=== PATIENT | male | born 1955 | race Two or more races ===

== ENCOUNTER 2017-08-03 09:07 | Inpatient (IN) | payer MEDICAID ==
[2017-08-03] VITALS (35 sets, daily range): BP systolic 84–174; BP diastolic 24–68
[~2017-08-03] VITALS: Ht 175.3 cm; Wt 97.7 kg
[2017-08-03] MEDS ORDERED: SODIUM CHLORIDE 0.9% 1000ML BAG (SEPSIS BOLUS) IV ONE (10:15)
[2017-08-03 10:47] LABS: HEMATOCRIT. 36.3 % (42.0-52.0); HEMOGLOBIN. 11.6 g/dL (14.0-18.0); INR 1.7; MEAN CORPUSCULAR HEMOGLOBIN 26.4 pg (28.0-32.0); MEAN CORPUSCULAR VOLUME 82.5 fL (80.0-94.0); MEAN PLATELET VOLUME 10.5 fl (7.4-10.4); PLATELET 708 x1000/uL (130-400); PROTHROMBIN TIME 17.5 sec (9.4-11.6); RED BLOOD CELL COUNT 4.41 mill/uL (4.7-6.1); RED CELL DISTRIBUTION WIDTH 18.2 % (11.6-14.6)
[2017-08-03 10:55] LABS: CARBON DIOXIDE 28 mEq/L (21-32); CHLORIDE 99 mEq/L (98-107)
[2017-08-03] MEDS ORDERED: PHENYTOIN SODIUM 500 MG in SODIUM CHLORIDE 0.9% 50 ML IV ONE (11:15)
[2017-08-03 11:25] LABS: NUCLEATED RED BLOOD CELLS 2 /100 WBC; PLATELET ESTIMATE INCREASED
[2017-08-03] MEDS ORDERED: PIPERACILLIN/TAZ 3.375G PREMIX 50 ML IV ONE (12:15)
[2017-08-03] MEDS ORDERED: VANCOMYCIN 1 G PREMIX 200 ML IV ONE (12:15)
[2017-08-03] MEDS ORDERED: ONDANSETRON HCL 4MG/2ML VIAL IV PRN (12:45)
[2017-08-03] MEDS ORDERED: IPRATROPIUM/ALBUTEROL 0.5-3(2.5)MG/3ML NEB INH PRN (12:45)
[2017-08-03 13:24] LABS: CLARITY URINE CLEAR (CLEAR); COLOR URINE ORANGE (YELLOW); KETONES URINE TRACE (NEGATIVE); LEUKOCYTE ESTERASE URINE TRACE (NEGATIVE); NITRITE URINE NEGATIVE (NEGATIVE); OCCULT BLOOD URINE NEGATIVE (NEGATIVE); PROTEIN URINE 1+ (NEGATIVE); SPECIFIC GRAVITY URINE 1.019 (1.005-1.030)
[2017-08-03 13:42] LABS: *AMPHETAMINES SCREEN URINE NEGATIVE (NEGATIVE); *BARBITURATES SCREEN URINE NEGATIVE (NEGATIVE); *BENZODIAZEPINES SCREEN URINE NEGATIVE (NEGATIVE); *COCAINE SCREEN URINE NEGATIVE (NEGATIVE); CANNABINOID URINE SCREEN NEGATIVE (NEGATIVE); METHADONE URINE SCREEN NEGATIVE (NEGATIVE); OPIATES URINE SCREEN NEGATIVE (NEGATIVE); PHENCYCLIDINE URINE SCREEN NEGATIVE (NEGATIVE)
[2017-08-03] MEDS ORDERED: DEXT 5%/LACTATED RINGERS 1,000 ML IV ONE (16:00)
[2017-08-03] MEDS ORDERED: NICARDIPINE 100 MG in SODIUM CHLORIDE 0.9% 60 ML IV PRN (16:00)
[2017-08-03] MEDS: LEVOFLOXACIN 500MG PREMIX 100 ML IV SCH (17:02)
[2017-08-03] MEDS: NOREPINEPHRINE 8 MG in DEXT 5% WATER 242 ML IV PRN (17:38)
[2017-08-03] MEDS: LEVETIRACETAM IV SCH (18:18)
[2017-08-03] MEDS: [UNRECOGNIZED DRUG - OTHER] IV SCH (18:18)
[2017-08-03] MEDS: SODIUM CHLORIDE 0.9% INJ 3ML FLUSH IVF SCH (22:07)
[2017-08-04] VITALS (89 sets, daily range): BP systolic 85–123; BP diastolic 50–78
[2017-08-04] MEDS: SODIUM CHLORIDE 0.9% INJ 3ML FLUSH IVF SCH ×3 (05:16→22:31)
[2017-08-04] MEDS: LEVETIRACETAM IV SCH ×2 (05:50→18:04)
[2017-08-04] MEDS: [UNRECOGNIZED DRUG - OTHER] IV SCH ×2 (05:50→18:04)
[2017-08-04 06:16] LABS: HEMATOCRIT. 32.1 % (42.0-52.0); HEMOGLOBIN. 10.6 g/dL (14.0-18.0); MEAN CORPUSCULAR HEMOGLOBIN 27.2 pg (28.0-32.0); MEAN CORPUSCULAR VOLUME 82.2 fL (80.0-94.0); MEAN PLATELET VOLUME 10.7 fl (7.4-10.4); PLATELET 687 x1000/uL (130-400); RED BLOOD CELL COUNT 3.91 mill/uL (4.7-6.1); RED CELL DISTRIBUTION WIDTH 18.5 % (11.6-14.6)
[2017-08-04 06:38] LABS: CARBON DIOXIDE 26 mEq/L (21-32); CHLORIDE 102 mEq/L (98-107)
[2017-08-04 06:45] LABS: HDL CHOLESTEROL 19 mg/dL (40-59); LDL CHOLESTEROL 59 mg/dL (5-100)
[2017-08-04] MEDS: DEXT 5%/LACTATED RINGERS 1,000 ML IV SCH (07:45)
[2017-08-04 08:24] LABS: PLATELET ESTIMATE MARKEDLY INCREASED
[2017-08-04] MEDS ORDERED: LIDOCAINE HCL 1% 20ML VIAL (Pyxis) INJ ONE (10:59)
[2017-08-04] MEDS ORDERED: DEXTROSE 50% WATER 50ML SYRINGE IV PRN (17:15)
[2017-08-04] MEDS: INSULIN LISPRO 100 UNITS/ML SUBCUT SCH ×2 (18:17→20:30)
[2017-08-04] MEDS: BLOOD SUGAR DIAGNOSTIC STRIP TEST SCH ×2 (18:18→20:28)
[2017-08-05] VITALS (91 sets, daily range): BP systolic 81–110; BP diastolic 48–77
[2017-08-05] MEDS: DEXT 5%/LACTATED RINGERS 1,000 ML IV SCH ×3 (00:36→23:45)
[2017-08-05] MEDS: SODIUM CHLORIDE 0.9% INJ 3ML FLUSH IVF SCH ×3 (05:15→22:00)
[2017-08-05] MEDS: LEVETIRACETAM IV SCH (05:34)
[2017-08-05] MEDS: NOREPINEPHRINE 8 MG in DEXT 5% WATER 242 ML IV PRN (05:34)
[2017-08-05] MEDS: [UNRECOGNIZED DRUG - OTHER] IV SCH (05:34)
[2017-08-05] MEDS: BLOOD SUGAR DIAGNOSTIC STRIP TEST SCH ×4 (05:40→20:44)
[2017-08-05 05:48] LABS: HEMATOCRIT. 33.7 % (42.0-52.0); HEMOGLOBIN. 10.8 g/dL (14.0-18.0); MEAN CORPUSCULAR HEMOGLOBIN 26.2 pg (28.0-32.0); MEAN CORPUSCULAR VOLUME 82.1 fL (80.0-94.0); MEAN PLATELET VOLUME 10.6 fl (7.4-10.4); PLATELET 671 x1000/uL (130-400); RED CELL DISTRIBUTION WIDTH 18.4 % (11.6-14.6)
[2017-08-05] MEDS: INSULIN LISPRO 100 UNITS/ML SUBCUT SCH ×4 (06:40→20:44)
[2017-08-05 08:24] LABS: PLATELET ESTIMATE MARKEDLY INCREASED
[2017-08-05] MEDS: LEVETIRACETAM 500MG PREMIX 100 ML IV SCH (17:08)
[2017-08-05] MEDS: LEVOFLOXACIN 500MG PREMIX 100 ML IV SCH (19:15)
[2017-08-06] VITALS (52 sets, daily range): BP systolic 42–106; BP diastolic 22–77
[2017-08-06] MEDS: SODIUM CHLORIDE 0.9% INJ 3ML FLUSH IVF SCH ×3 (06:04→21:29)
[2017-08-06] MEDS: BLOOD SUGAR DIAGNOSTIC STRIP TEST SCH ×4 (06:04→21:26)
[2017-08-06] MEDS: LEVETIRACETAM 500MG PREMIX 100 ML IV SCH ×2 (06:04→18:00)
[2017-08-06 07:23] LABS: INR 1.2; PARTIAL THROMBOPLASTIN TIME 31.5 sec (23.4-31.0); PROTHROMBIN TIME 12.5 sec (9.4-11.6)
[2017-08-06] MEDS: BACITRACIN ZINC 15GM TUBE TOP SCH (10:10)
[2017-08-06] MEDS: GUAIFENESIN-DM 200MG-20MG/10ML UDC PO PRN ×3 (10:15→23:59)
[2017-08-06 10:16] LABS: BASOPHILS % 1.8 % (0.0-2.0); EOSINOPHILS % 3.6 % (0.0-5.0); HEMATOCRIT. 32.4 % (42.0-52.0); HEMOGLOBIN. 10.7 g/dL (14.0-18.0); LYMPHOCYTES % 7.8 % (20.0-50.0); MEAN CORPUSCULAR HEMOGLOBIN 26.9 pg (28.0-32.0); MEAN CORPUSCULAR VOLUME 81.4 fL (80.0-94.0); MEAN PLATELET VOLUME 10.7 fl (7.4-10.4); MONOCYTES % 5.9 % (2.0-8.0); NEUTROPHILS % 80.9 % (40.0-76.0); PLATELET 604 x1000/uL (130-400); RED BLOOD CELL COUNT 3.98 mill/uL (4.7-6.1); RED CELL DISTRIBUTION WIDTH 18.1 % (11.6-14.6)
[2017-08-06] MEDS: INSULIN LISPRO 100 UNITS/ML SUBCUT SCH ×3 (11:55→21:00)
[2017-08-06] MEDS ORDERED: CLINDAMYCIN HCL 150MG CAPSULE PO SCH (12:00)
[2017-08-06] MEDS: DEXT 5%/LACTATED RINGERS 1,000 ML IV SCH (13:28)
[2017-08-06] MEDS ORDERED: HYDROCODONE/ACETAMINOPHEN 5/325MG TABLET PO PRN (19:15)
[2017-08-06] MEDS ORDERED: ACETAMINOPHEN 325MG TABLET PO PRN (19:15)
[2017-08-06] MEDS: CLINDAMYCIN HCL 150MG CAPSULE PO SCH (23:08)
[2017-08-07] VITALS: BP 92/63
[2017-08-07] MEDS: DEXT 5%/LACTATED RINGERS 1,000 ML IV SCH ×2 (03:03→17:04)
[2017-08-07 04:00] VITALS: BP 104/66
[2017-08-07] MEDS: BLOOD SUGAR DIAGNOSTIC STRIP TEST SCH ×4 (06:19→21:02)
[2017-08-07] MEDS: INSULIN LISPRO 100 UNITS/ML SUBCUT SCH ×4 (06:19→21:00)
[2017-08-07] MEDS: CLINDAMYCIN HCL 150MG CAPSULE PO SCH ×3 (06:34→21:06)
[2017-08-07] MEDS: SODIUM CHLORIDE 0.9% INJ 3ML FLUSH IVF SCH ×3 (06:34→21:03)
[2017-08-07] MEDS: LEVETIRACETAM 500MG PREMIX 100 ML IV SCH ×2 (06:35→17:04)
[2017-08-07 08:00] VITALS: BP 108/70
[2017-08-07] MEDS: GUAIFENESIN-DM 200MG-20MG/10ML UDC PO PRN (09:06)
[2017-08-07] MEDS: BACITRACIN ZINC 15GM TUBE TOP SCH (09:10)
[2017-08-07 12:00] VITALS: BP 99/65
[2017-08-07 16:55] VITALS: BP 102/70
[2017-08-07] MEDS: LEVOFLOXACIN 500MG PREMIX 100 ML IV SCH (17:58)
[2017-08-07 20:00] VITALS: BP 91/61
[2017-08-08] VITALS: BP 95/61
[2017-08-08 04:00] VITALS: BP 102/63
[2017-08-08] MEDS: GUAIFENESIN-DM 200MG-20MG/10ML UDC PO PRN ×2 (04:00→13:20)
[2017-08-08] MEDS: CLINDAMYCIN HCL 150MG CAPSULE PO SCH ×3 (05:42→21:02)
[2017-08-08] MEDS: LEVETIRACETAM 500MG PREMIX 100 ML IV SCH ×2 (05:43→17:05)
[2017-08-08] MEDS: DEXT 5%/LACTATED RINGERS 1,000 ML IV SCH (05:43)
[2017-08-08] MEDS: SODIUM CHLORIDE 0.9% INJ 3ML FLUSH IVF SCH ×3 (05:43→21:01)
[2017-08-08] MEDS: BLOOD SUGAR DIAGNOSTIC STRIP TEST SCH ×4 (06:00→20:54)
[2017-08-08] MEDS: INSULIN LISPRO 100 UNITS/ML SUBCUT SCH ×4 (06:00→20:54)
[2017-08-08 08:00] VITALS: BP_SYST 102; BP_SYST 91; BP_DIAS 103; BP_DIAS 79
[2017-08-08] MEDS: BACITRACIN ZINC 15GM TUBE TOP SCH (09:53)
[2017-08-08 12:00] VITALS: BP 103/67
[2017-08-08 16:00] VITALS: BP 104/81
[2017-08-08] MEDS: LEVOFLOXACIN 500MG PREMIX 100 ML IV SCH (21:02)
[2017-08-09 02:00] VITALS: BP 90/59
[2017-08-09 05:00] VITALS: BP 96/55
[2017-08-09] MEDS: BLOOD SUGAR DIAGNOSTIC STRIP TEST SCH ×4 (06:07→21:00)
[2017-08-09] MEDS: INSULIN LISPRO 100 UNITS/ML SUBCUT SCH ×4 (06:07→21:00)
[2017-08-09] MEDS: SODIUM CHLORIDE 0.9% INJ 3ML FLUSH IVF SCH ×3 (06:08→21:32)
[2017-08-09] MEDS: LEVETIRACETAM 500MG PREMIX 100 ML IV SCH ×2 (06:08→19:17)
[2017-08-09] MEDS: CLINDAMYCIN HCL 150MG CAPSULE PO SCH ×3 (06:11→21:32)
[2017-08-09 08:23] VITALS: BP 111/71
[2017-08-09] MEDS: BACITRACIN ZINC 15GM TUBE TOP SCH (09:41)
[2017-08-09 11:56] VITALS: BP 99/64
[2017-08-09 16:32] VITALS: BP 96/57
[2017-08-09] MEDS: GUAIFENESIN-DM 200MG-20MG/10ML UDC PO PRN (16:42)
[2017-08-09 20:00] VITALS: BP 98/66
[2017-08-09] MEDS: LEVOFLOXACIN 500MG PREMIX 100 ML IV SCH (21:32)
[2017-08-10] VITALS: BP 105/69
[2017-08-10 04:00] VITALS: BP 100/63
[2017-08-10] MEDS: LEVETIRACETAM 500MG PREMIX 100 ML IV SCH ×2 (05:36→18:22)
[2017-08-10] MEDS: CLINDAMYCIN HCL 150MG CAPSULE PO SCH ×3 (05:37→21:01)
[2017-08-10] MEDS: SODIUM CHLORIDE 0.9% INJ 3ML FLUSH IVF SCH ×3 (05:37→21:01)
[2017-08-10] MEDS: BLOOD SUGAR DIAGNOSTIC STRIP TEST SCH ×4 (05:53→20:38)
[2017-08-10] MEDS: INSULIN LISPRO 100 UNITS/ML SUBCUT SCH ×4 (05:53→20:39)
[2017-08-10 08:05] VITALS: BP 91/58
[2017-08-10] MEDS: BACITRACIN ZINC 15GM TUBE TOP SCH (09:19)
[2017-08-10 11:45] VITALS: BP 94/60
[2017-08-10] MEDS ORDERED: BISACODYL 5MG TABLET PO PRN (14:30)
[2017-08-10] MEDS: GUAIFENESIN-DM 200MG-20MG/10ML UDC PO PRN (14:35)
[2017-08-10 16:00] VITALS: BP 92/59
[2017-08-10] MEDS: PIPERACILLIN/TAZ 3.375G PREMIX 50 ML IV SCH (17:52)
[2017-08-10 20:00] VITALS: BP 98/64
[2017-08-10] MEDS: MIRTAZAPINE 15MG TABLET PO SCH (21:01)
[2017-08-11] VITALS: BP 97/67
[2017-08-11] MEDS: PIPERACILLIN/TAZ 3.375G PREMIX 50 ML IV SCH ×5 (00:44→23:35)
[2017-08-11 04:00] VITALS: BP 93/60
[2017-08-11] MEDS: LEVETIRACETAM 500MG PREMIX 100 ML IV SCH ×2 (05:09→18:12)
[2017-08-11] MEDS: CLINDAMYCIN HCL 150MG CAPSULE PO SCH ×3 (05:09→21:47)
[2017-08-11] MEDS: SODIUM CHLORIDE 0.9% INJ 3ML FLUSH IVF SCH ×3 (05:10→21:47)
[2017-08-11] MEDS: BLOOD SUGAR DIAGNOSTIC STRIP TEST SCH ×4 (06:13→21:48)
[2017-08-11] MEDS: INSULIN LISPRO 100 UNITS/ML SUBCUT SCH ×4 (06:17→21:00)
[2017-08-11 08:00] VITALS: BP 98/65
[2017-08-11] MEDS: BACITRACIN ZINC 15GM TUBE TOP SCH (09:44)
[2017-08-11 12:00] VITALS: BP 102/66
[2017-08-11 16:00] VITALS: BP 104/66
[2017-08-11 18:23] LABS: HEMATOCRIT. 36.6 % (42.0-52.0); HEMOGLOBIN. 11.7 g/dL (14.0-18.0); MEAN CORPUSCULAR HEMOGLOBIN 26.1 pg (28.0-32.0); MEAN CORPUSCULAR VOLUME 81.7 fL (80.0-94.0); MEAN PLATELET VOLUME 10.2 fl (7.4-10.4); PLATELET 539 x1000/uL (130-400); RED BLOOD CELL COUNT 4.48 mill/uL (4.7-6.1); RED CELL DISTRIBUTION WIDTH 18.4 % (11.6-14.6)
[2017-08-11 18:41] LABS: CARBON DIOXIDE 25 mEq/L (21-32); CHLORIDE 100 mEq/L (98-107)
[2017-08-11 19:12] LABS: PLATELET ESTIMATE INCREASED
[2017-08-11 20:00] VITALS: BP 103/64
[2017-08-11] MEDS: MIRTAZAPINE 15MG TABLET PO SCH (21:48)
[2017-08-12] VITALS: BP 130/79
[2017-08-12 04:00] VITALS: BP 141/65
[2017-08-12] MEDS: SODIUM CHLORIDE 0.9% INJ 3ML FLUSH IVF SCH (05:36)
[2017-08-12] MEDS: PIPERACILLIN/TAZ 3.375G PREMIX 50 ML IV SCH ×2 (05:36→12:07)
[2017-08-12] MEDS: CLINDAMYCIN HCL 150MG CAPSULE PO SCH (05:36)
[2017-08-12] MEDS: BLOOD SUGAR DIAGNOSTIC STRIP TEST SCH ×2 (06:38→12:06)
[2017-08-12] MEDS: LEVETIRACETAM 500MG PREMIX 100 ML IV SCH (06:38)
[2017-08-12] MEDS: INSULIN LISPRO 100 UNITS/ML SUBCUT SCH ×2 (06:38→12:07)
[2017-08-12 08:00] VITALS: BP 102/63
[2017-08-12 08:04] LABS: HEMATOCRIT 36.4 % (42.0-52.0); HEMOGLOBIN 11.7 g/dL (14.0-18.0); MEAN CORPUSCULAR HEMOGLOBIN 26.3 pg (28.0-32.0); PLATELET 505 x1000/uL (130-400); RED BLOOD CELL COUNT 4.44 mill/uL (4.7-6.1); RED CELL DISTRIBUTION WIDTH 18.9 % (11.6-14.6)
[2017-08-12] MEDS: BACITRACIN ZINC 15GM TUBE TOP SCH (09:48)
[2017-08-12 12:00] VITALS: BP 108/63
[2017-08-12] MEDS ORDERED: KEPP500 PO (12:19)
[2017-08-12] MEDS ORDERED: CLIN300C3 PO (12:19)
[2017-08-12] MEDS ORDERED: LEVO500T2 PO (12:19)
[2017-08-12] MEDS ORDERED: MIRT15TA6 PO (12:19)
[2017-08-12 12:43] VITALS: BP 108/63
== END 2017-08-12 14:15 | disposition home or self-care (01) | DRG 720 ==
LOC: ER 09:16 → MICUNO 12:21 → EDBEDREQ 12:24 → ENRESERV 14:05 → 5WST 08-06 14:25
PROVIDERS: ADMIT Family Medicine; ATTEND Family Medicine
PROC: 02HV33Z Insertion of Infusion Device into Superior Vena Cava, Percutaneous Approach (ICD-10-PCS; principal; 2017-08-04)
PROC: B548ZZA Ultrasonography of Superior Vena Cava, Guidance (ICD-10-PCS; 2017-08-04)
DX: A41.9 Sepsis, unspecified organism (principal); I61.1 Nontraumatic intracerebral hemorrhage in hemisphere, cortical; N17.0 Acute kidney failure with tubular necrosis; I63.511 Cerebral infarction due to unspecified occlusion or stenosis of right middle cerebral artery; J84.9 Interstitial pulmonary disease, unspecified; E11.22 Type 2 diabetes mellitus with diabetic chronic kidney disease; E11.621 Type 2 diabetes mellitus with foot ulcer; D64.9 Anemia, unspecified; E11.65 Type 2 diabetes mellitus with hyperglycemia; E87.6 Hypokalemia; I25.10 Atherosclerotic heart disease of native coronary artery without angina pectoris; J98.11 Atelectasis; L97.509 Non-pressure chronic ulcer of other part of unspecified foot with unspecified severity; N18.9 Chronic kidney disease, unspecified; S09.90XA Unspecified injury of head, initial encounter; E11.40 Type 2 diabetes mellitus with diabetic neuropathy, unspecified; W01.0XXA Fall on same level from slipping, tripping and stumbling without subsequent striking against object, initial encounter; I13.0 Hypertensive heart and chronic kidney disease with heart failure and stage 1 through stage 4 chronic kidney disease, or unspecified chronic kidney disease; I50.9 Heart failure, unspecified; M77.30 Calcaneal spur, unspecified foot; Z23 Encounter for immunization; Z86.73 Personal history of transient ischemic attack (TIA), and cerebral infarction without residual deficits; Z89.429 Acquired absence of other toe(s), unspecified side; I25.2 Old myocardial infarction; Z91.19 Patient's noncompliance with other medical treatment and regimen; Y93.89 Activity, other specified; Y92.89 Other specified places as the place of occurrence of the external cause; Y99.8 Other external cause status
CPT/HCPCS: 36415; 36569; 51702; 70450; 71045; 73630; 76770; 76937; 80048; 80053; 80061; 80305; 81001; 82040; 82962; 83605; 84484; 85025; 85027; 85610; 85730; 87040; 87070; 87077; 87086; 87205; 87804; 92610; 93005; 94664; 96365; 96367; 97110; 97116; 97163; 97167; 97530; 97535; 99285; A6261; C1725; J1165; J1815; J1953; J1956; J2543; J3370; J3490; J7030; J7042; J7050; J7060; J7121; J7620; A4315